=== PATIENT | female | born 1995 | race Caucasian/White ===

== ENCOUNTER 2018-04-29 14:48 | Emergency (ER) | payer OTHER ==
[~2018-04-29 14:48] MED LIST: ISOVUE-370 76%-LOCM 1 ML ONE
[2018-04-29] MEDS ORDERED: Promethazine HCl 25 MG/ML VIAL ONE (15:14)
[2018-04-29] MEDS ORDERED: Lidocaine 2% Viscous Solution 10 ML, Aluminum & Magnesium Hydroxide 20 ML, Donnatal Eli... SSW SCH (15:15)
[2018-04-29] MEDS ORDERED: Mag-Al 1200 mg/1200 mg/30 ML UDCUP ONE (15:15)
[2018-04-29] MEDS ORDERED: Lidocaine Viscous Sol 2% 15 ml UD Cup ONE (15:15)
[2018-04-29 15:28] LABS: #Lymphocytes 1.4 thou/uL (1.20-3.40); #Monocytes 0.4 thou/uL (0.11-0.59); %Basophils 0.6 % (0.0-1.0); %Eosinophils 0.4 % (0.0-10.0); %Lymphocytes 20.7 % (21.0-51.0); %Monocytes 5.6 % (0.0-10.0); %Neutrophils 72.7 % (42.0-75.0); Hemoglobin 14.8 g/dL (12.0-16.0); Mean Corpuscular HGB CONC 33.1 g/dL (32.0-36.0); Mean Corpuscular Hemoglobin 31.5 pg (27.0-31.0); Mean Corpuscular Volume 95.2 fL (78.0-98.0); Platelet Count 178 thou/uL (130-400); RBC Distribution Width 12.5 % (11.5-14.5); White Blood Cell (WBC) Count 6.9 thou/uL (4.8-10.8)
[2018-04-29 15:56] LABS: ALT (SGPT) 41 U/L (8-55); AST (SGOT) 44 U/L (5-34); Albumin 3.9 g/dL (3.5-5.0); Alkaline Phosphatase 54 U/L (40-150); Anion Gap 14 mmol/L (10-20); BUN (Urea Nitrogen) 22 mg/dL (7.0-18.7); Bilirubin, Total 0.8 mg/dL (0.2-1.2); Calc. Creatinine Clearance 0 mL/min (70-130); Carbon Dioxide 20 mmol/L (22-29); Chloride 108 mmol/L (98-107); Estimated GFR-MDRD 85; Globulin 3.2 g/dL (2.4-3.5); Glucose 137 mg/dL (70-105); Lipase 13 U/L (8-78); Protein, Total 7.1 g/dL (6.0-8.3); Sodium 138 mmol/L (136-145)
[2018-04-29 16:41] LABS: Bilirubin Negative (Negative); Blood, Urine Negative (Negative); Clarity CLEAR (Clear); Glucose, Urine (Dipstick) Negative (Negative); Leukocyte Small (Negative); Nitrite Negative (Negative); Protein, Urine (Dipstick) Negative (Neg-Trace); Specific Gravity, Urine 1.032 (1.002-1.036); Urobilinogen 0.2 mg/dL (0.2-1.0); pH, Urine 5.5 (5.0-9.0)
[2018-04-29 16:42] LABS: Bacteria/HPF Rare-Few HPF (None Seen); Hyaline Casts/LPF 0-3 HYALINE CAST LPF (0-3 Hyaline); Pregnancy Test - Urine (BHCG) Negative (Negative); Pregu Control Background? CLEAR/WHITE (CLR/WHITE); Pregu Control Bar Appear? YES (CONTROL BAR); RBC/HPF 0-3 HPF (0-3); Specific Gravity 1.032 (1.002-1.036)
--- NOTE | 2018-04-29 17:09 | CT ---
ABDOMEN AND PELVIC CT SCAN WITH IV CONTRAST 04/29/18 HISTORY: Diffuse abdominal pain with nausea and vomiting. FINDINGS: Lung bases are clear. Status post cholecystectomy without ductal dilatation. The visualized pancreas, spleen, adrenal glands are unremarkable. No renal calculus or obstruction. Normal appearing at le ast partially visualized appendix. No CT evidence for acute appendicitis. There are several loops of minimally abnormally dilated small bowel in the lower central abdomen up to 2.7 cm with some possible mild wall thickening raising concern for some focal enteritis or ileus. Uterus and adnexal regions a re unremarkable. Urinary bladder is unremarkable. No abscess, adenopathy or abnormality fluid collect ion demonstrated. IMPRESSION: Several minimally abnormally dilated small bowel loops with some questionable very mild wall thickeni ng, nonspecific, possibly some ileus or minimal enteritis. No CT evidence for acute appendicitis. Sta tus post cholecystectomy. No renal calculus or obstruction or other significant acute process. POS: [facility]
== END 2018-04-29 17:27 | disposition home or self-care (01) ==
LOC: ERS 14:48
DX: R10.84 Generalized abdominal pain (principal); R11.2 Nausea with vomiting, unspecified; Z79.899 Other long term (current) drug therapy
CPT/HCPCS: 36415; 74177; 80053; 81003; 81015; 81025; 83690; 85025; 96365; J2550